=== PATIENT | female | born 1990 | race Caucasian/White ===

== ENCOUNTER 2016-12-22 20:36 | Emergency (ER) | payer OTHER ==
[~2016-12-22] VITALS: Ht 165.1 cm; Wt 65.8 kg
[2016-12-22 20:50] VITALS: BP 115/67
[2016-12-22 20:57] LABS: NEG OBC UR NEG; POS OBC UR POS
[2016-12-22 21:00] LABS: BILIRUBIN,URINE NEGATIVE (NEG); GLUCOSE,URINE NEGATIVE (NEG); NITRITE,URINE NEGATIVE (NEG); PROTEIN,URINE NEGATIVE (NEG-TRACE); UROBILINOGEN,URINE 0.2 mg/dL (0.2 mg/dL)
[2016-12-22 21:07] LABS: BACTERIA,URINE 0 /HPF (0-FEW); RBC,URINE OCC /HPF (0-2); SQUAMOUS EPITHELIAL CELL,UR FEW /LPF
[2016-12-22] MEDS ORDERED: ONDANSETRON PF 4 MG/2 ML VIAL. IV ONE (21:30)
[2016-12-22] MEDS ORDERED: IV NORMAL SALINE 1000ML BAG 1,000 ML IV ONE (21:30)
[2016-12-22] MEDS ORDERED: KETOROLAC TROMETHAMINE 30 MG/ML SYRINGE. IV ONE (21:30)
[2016-12-22 21:33] LABS: BASO # 0.1 x10^3/uL (0.0-0.2); BASO % 1 % (0-3); EOS % 2 % (0-3); HEMATOCRIT 40.9 % (36.0-47.0); HEMOGLOBIN 13.6 g/dL (12.0-15.5); LYMPH # 3.2 x10^3/uL (1.0-4.8); LYMPH % 27 % (24-48); MEAN CORPUSCULAR HEMOGLOBIN 30 pg (25-35); MEAN CORPUSCULAR HGB CONC 33 g/dL (31-37); MEAN CORPUSCULAR VOLUME 90 fL (79-100); MONO % 6 % (0-9); NEUT % 65 % (31-73); PLATELET COUNT 288 x10^3/uL (140-400); RED BLOOD COUNT 4.53 x10^6/uL (3.50-5.40); RED CELL DISTRIBUTION WIDTH 13.5 % (11.5-14.5); WHITE BLOOD COUNT 11.8 x10^3/uL (4.0-11.0)
[2016-12-22 21:49] LABS: CALCIUM 9.2 mg/dL (8.5-10.1); CREATININE 0.8 mg/dL (0.6-1.0); GFR 87.4; POTASSIUM 3.1 mmol/L (3.5-5.1)
[2016-12-22] MEDS ORDERED: FENTANYL PF 100 MCG/2 ML VIAL. IV ONE (22:15)
[2016-12-22] MEDS ORDERED: IBUP-1060 PO (22:51)
--- NOTE | 2016-12-22 22:51 | PHYS DOC ---
Past Medical History Past Medical History: No Pertinent History Past Surgical History: Tonsillectomy, Other Additional Past Surgical Histo: ADNOIDS Alcohol Use: None Drug Use: None Adult General Chief Complaint Chief Complaint: FLANK PAIN HPI HPI This is a 26-year-old female who presents with significant lower back pain left greater than right for the last week. She also states she's having some some pain in her vaginal area but denies any dysuria. She states it's more of a burning sensation in her outer labial area that she is concerned for. She denies any significant discharge. She is stating she would like to be tested for sexually transmitted illness but is not amenable to being treated today. She denies any hematuria. She denies any fever or chills. Review of Systems Review of Systems Constitutional: Denies fever or chills [] Eyes: Denies change in visual acuity, redness, or eye pain [] HENT: Denies nasal congestion or sore throat [] Respiratory: Denies cough or shortness of breath [] Cardiovascular: No additional information not addressed in HPI [] GI: Denies abdominal pain, nausea, vomiting, bloody stools or diarrhea [] : Denies dysuria or hematuria [] Musculoskeletal: Has back pain, denies joint pain [] Integument: Denies rash or skin lesions [] Neurologic: Denies headache, focal weakness or sensory changes [] Endocrine: Denies polyuria or polydipsia [] Current Medications Current Medications Current Medications Medications (Trade) Dose Ordered Sig/Bhanu Start Time Stop Time Status Last Admin Dose Admin Fentanyl Citrate (Fentanyl 2ml Vial) 50 mcg 1X ONCE 12/22/16 22:15 12/22/16 22:16 DC 12/22/16 22:05 50 MCG Ketorolac Tromethamine (Toradol) 30 mg 1X ONCE 12/22/16 21:30 12/22/16 21:31 DC 12/22/16 21:34 30 MG Ondansetron HCl 4 mg 4 mg 1X ONCE 12/22/16 21:30 12/22/16 21:31 DC 12/22/16 21:33 4 MG Sodium Chloride (Iv Sodium Chloride 0.9% 1000ml Bag) 1,000 ml @ 1,000 mls/hr 1X ONCE 12/22/16 21:30 12/22/16 22:29 DC 12/22/16 21:34 1,000 MLS/HR Allergies Allergies Allergies Coded Allergies Type Severity Reaction Last Updated Verified Sulfa (Sulfonamide Antibiotics) Allergy Mild RASH 12/22/16 Yes Physical Exam Physical Exam Constitutional: Well developed, well nourished, no acute distress, non-toxic appearance. [] HENT: Normocephalic, atraumatic, bilateral external ears normal, oropharynx moist, no oral exudates, nose normal. [] Eyes: PERRLA, EOMI, conjunctiva normal, no discharge. [] Neck: Normal range of motion, no tenderness, supple, no stridor. [] Cardiovascular:Heart rate regular rhythm, no murmur [] Lungs & Thorax: Bilateral breath sounds clear to auscultation [] Abdomen: Bowel sounds normal, soft, no tenderness, no masses, no pulsatile masses. [] Skin: Warm, dry, no erythema, no rash. [] Back: Mild tenderness to the lumbar region with no palpable deformity or swelling, mild CVA tenderness. [] Extremities: No tenderness, no cyanosis, no clubbing, ROM intact, no edema. [] Neurologic: Alert and oriented X 3, normal motor function, normal sensory function, no focal deficits noted. [] Psychologic: Affect normal, judgement normal, mood normal. [] Current Patient Data Vital Signs Vital Signs Date Time Temp Pulse Resp B/P Pulse Ox O2 Delivery O2 Flow Rate FiO2 12/22/16 20:50 98.1 89 20 115/67 96 Room Air 98.1 Lab Values Laboratory Tests Test 12/22/16 20:40 White Blood Count 11.8x10^3/uL (4.0-11.0) H Red Blood Count 4.53x10^6/uL (3.50-5.40) Hemoglobin 13.6g/dL (12.0-15.5) Hematocrit 40.9% (36.0-47.0) Mean Corpuscular Volume 90fL (79-100) Mean Corpuscular Hemoglobin 30pg (25-35) Mean Corpuscular Hemoglobin Concent 33g/dL (31-37) Red Cell Distribution Width 13.5% (11.5-14.5) Platelet Count 288x10^3/uL (140-400) Neutrophils (%) (Auto) 65% (31-73) Lymphocytes (%) (Auto) 27% (24-48) Monocytes (%) (Auto) 6% (0-9) Eosinophils (%) (Auto) 2% (0-3) Basophils (%) (Auto) 1% (0-3) Neutrophils # (Auto) 7.7x10^3uL (1.8-7.7) Lymphocytes # (Auto) 3.2x10^3/uL (1.0-4.8) Monocytes # (Auto) 0.7x10^3/uL (0.0-1.1) Eosinophils # (Auto) 0.2x10^3/uL (0.0-0.7) Basophils # (Auto) 0.1x10^3/uL (0.0-0.2) Urine Collection Type Unknown Urine Color Yellow Urine Clarity Clear Urine pH 6.0 Urine Specific [place] 1.025 Urine Protein Negativemg/dL (NEG-TRACE) Urine Glucose (UA) Negativemg/dL (NEG) Urine Ketones (Stick) Tracemg/dL (NEG) Urine Blood Negative (NEG) Urine Nitrite Negative (NEG) Urine Bilirubin Negative (NEG) Urine Urobilinogen Dipstick 0.2mg/dL (0.2 mg/dL) Urine Leukocyte Esterase Small (NEG) Urine RBC Occ/HPF (0-2) Urine WBC 1-4/HPF (0-4) Urine Squamous Epithelial Cells Few/LPF Urine Bacteria 0/HPF (0-FEW) Urine Mucus Mod/LPF Urine Test Negative (NEG) Sodium Level 143mmol/L (136-145) Potassium Level 3.1mmol/L (3.5-5.1) L Chloride Level 103mmol/L (98-107) Carbon Dioxide Level 33mmol/L (21-32) H Anion Gap 7 (6-14) Blood Urea Nitrogen 7mg/dL (7-20) Creatinine 0.8mg/dL (0.6-1.0) Estimated GFR (Cockcroft-Gault) 87.4 Glucose Level 116mg/dL (70-99) H Calcium Level 9.2mg/dL (8.5-10.1) Laboratory Tests 12/22/16 20:40 Laboratory Tests 12/22/16 20:40 EKG EKG [] Radiology/Procedures Radiology/Procedures [] Course & Med Decision Making Course & Med Decision Making Pertinent Labs and Imaging studies reviewed. (See chart for details) This 26-year-old female has a negative laboratory workup. Her urinalysis does not demonstrate any signs of infection. Her kidney function is normal. Patient was given an IV dose of Toradol that was ineffective and then followed with an IV dose of fentanyl which improved her pain significantly. In light of her negative workup do not see any indication at this time to do any CT imaging. He' ll be discharged with a patient with a course of anti-inflammatory medications as I believe her symptoms are likely more musculoskeletal in etiology. I instructed her to avoid any strenuous activities for the next several days and to allow her inflammation to subside. If she still has continued symptoms, I instructed her to return to the ER for evaluation or to return if she does any fever or chills or dysuria type symptoms. She is very agreeable with this plan and discharged without incident. Dragon Disclaimer Dragon Disclaimer This electronic medical record was generated, in whole or in part, using a voice recognition dictation system. Departure Departure Impression: Primary Impression: Flank pain Disposition: 01 HOME, SELF-CARE Admitting Physician: Other Condition: LEFT WITHOUT BEING SEEN Referrals: NO PCP (PCP) Patient Instructions: Flank Pain, [id number] Additional Instructions: Please take your motrin as prescribed. Follow up closely with your primary doctor in the next 2-3 days for your back pain. Return to the ER if you develop any worsening of your symptoms. Scripts Ibuprofen 800 Mg [id number] Mg PO PRN Q6HRS PRN INFLAMMATION #20 TAB Prov:LALO ARELLANO DO 12/22/16 LALO ARELLANO DO Dec 22, 2016 22:51
== END 2016-12-22 23:01 | disposition home or self-care (01) ==
LOC: ER 20:36
DX: R10.9 Unspecified abdominal pain (principal); M54.5 Low back pain; R20.8 Other disturbances of skin sensation; Z88.2 Allergy status to sulfonamides
CPT/HCPCS: 36415; 80048; 81001; 81025; 85027; 87086; 87491; 87591; 96361; 96374; 96375; 99284; J1885; J2405; J3010; J7030